=== PATIENT | male | born 1945 | race Caucasian/White ===

== ENCOUNTER 2017-12-16 18:08 | Emergency (ER) | payer OTHER ==
[~2017-12-16] VITALS: Ht 167.6 cm; Wt 77.1 kg
[~2017-12-16 18:08] MED LIST: LISINOPRIL5 MG PO; LORTAB 5 MG/5001 TA1 PO; PHENERGAN 25 MG25 M1 PO; ZOCOR
[2017-12-16] MEDS ORDERED: PROZAC20 MG PO (18:21)
[2017-12-16] MEDS ORDERED: REQUIP1 MG PO (18:21)
[2017-12-16] MEDS ORDERED: SINEMET 25-1001 EAC1 PO (18:21)
[2017-12-16] MEDS ORDERED: ARTIFICIAL TEA1 EACH OPHTHALMIC (18:22)
[2017-12-16] MEDS ORDERED: ZOCOR20 MG PO (18:22)
[2017-12-16] MEDS ORDERED: PRINIVIL5 MG PO (18:22)
[2017-12-16 18:27] LABS: ABSOLUTE EOSINOPHILS 0.2 thou/uL (0.0-0.7); ABSOLUTE LYMPHOCYTES 1.1 thou/uL (0.8-5.3); ABSOLUTE MONOCYTES 0.7 thou/uL (0.0-1.2); ABSOLUTE NEUTROPHILS 6.2 thou/uL (1.6-8.1); BASOPHILS 0.5 %; EOSINOPHILS 2.4 %; HEMATOCRIT 41.3 % (42.0-52.0); HEMOGLOBIN 13.9 gm/dL (14.0-18.0); LYMPHOCYTES 13.6 %; MCH 32.1 pg (26.0-34.0); MCHC 33.7 g/dL (28.0-37.0); MCV 95.4 fL (80.0-100.0); MONOCYTES 8.4 %; MPV 7.9 fl. (7.2-11.1); NUCLEATED RBCS 0 /100WBC; PLATELET COUNT* 195 thou/uL (150-400); POLYS 75.1 %; RBC 4.33 mil/uL (4.50-6.00); RDW-CV 14.2 % (10.5-14.5); WBC 8.3 thou/uL (4.0-11.0)
[2017-12-16 18:36] LABS: ANION GAP 9 mmol/L (7-16); BUN 19 mg/dL (7-18); CALCIUM 8.4 mg/dL (8.5-10.1); CHLORIDE 98 mmol/L (98-107); CO2 26 mmol/L (21-32); CREATININE 1.2 mg/dL (0.6-1.3); GLUCOSE 111 mg/dL (70-99); POTASSIUM 3.3 mmol/L (3.5-5.1); PROTIME 10.6 Seconds (9.20-11.50); SODIUM 133 mmol/L (136-145)
[2017-12-16 18:43] LABS: ALBUMIN 4.2 g/dL (3.4-5.0); ALKALINE PHOSPHATASE 65 U/L (46-116); LIPASE 130 U/L (73-393); SGOT 23 U/L (15-37); SGPT 18 U/L (30-65); TOTAL BILIRUBIN 0.8 mg/dL (<0.1-1.0); TOTAL PROTEIN 7.4 g/dL (6.4-8.2); TROPONIN-I LEVEL <0.06 ng/mL (<0.06)
[2017-12-16 18:53] LABS: URINE BILIRUBIN NEGATIVE (Negative); URINE BLOOD 3+ (Negative); URINE CLARITY CLEAR; URINE COLOR YELLOW; URINE GLUCOSE-RANDOM NEGATIVE (Negative); URINE KETONES TRACE (Negative); URINE LEUKOCYTES NEGATIVE (Negative); URINE NITRITE NEGATIVE (Negative); URINE PROTEIN TRACE (Negative); URINE UROBILINOGEN 0.2 E.U./dl (0.2-1.0)
[2017-12-16 18:59] LABS: SQUAMOUS 0-3 Few /LPF (0-3)
[2017-12-16 19:00] LABS: BACTERIA 1-9 Few /HPF (None Seen); CASTS None Seen /LPF (None Seen); CRYSTALS None Seen /LPF (None Seen); MUCUS 0-3 Light strn/LPF (None Seen); URINE RBC >20 Many /HPF (0-2); URINE WBC 0-5 Rare /HPF (0-5)
[2017-12-16 20:43] VITALS: BP 163/81
--- NOTE | 2017-12-17 10:56 | EKG ---
[place] [address] ELECTROCARDIOGRAM REPORT Name: TENORIO,LELO Terrence 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[id number] Requested By: Katelyn Paige Order Number: [id number] MD: Gustavo Dinh Measurements Intervals [place] Rate: 72 P: 56 SC: 241 QRS: 22 QRSD: 108 T: 60 QT: 393 QTc: 431 Interpretive Statements Sinus rhythm Prolonged SC interval Borderline T wave abnormalities Baseline wander in lead(s) V6 No previous ECG available for comparison Electronically Signed On 12-17-2017 10:56:31 CDT by Gustavo Dinh [email or web address] <ELECTRONICALLY SIGNED> By: Gustavo Dinh MD, [facility] 12/17/17 1056 D: [id number] Gustavo Dinh MD, FACC /EPI
== END 2017-12-16 20:43 | disposition home or self-care (01) ==
LOC: M.ERS 18:08
PROVIDERS: Physician Assistant
DX: N20.0 Calculus of kidney (principal); E78.00 Pure hypercholesterolemia, unspecified; G20 Parkinson's disease; Z87.442 Personal history of urinary calculi